=== PATIENT | male | born 1990 | race Caucasian/White ===

== ENCOUNTER 2018-02-04 19:59 | Emergency (ER) | payer SELFPAY ==
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
[2018-02-04] MEDS ORDERED: Acetaminophen/HYDROcodone 325-7.5 MG Tab PO STA (20:24)
--- NOTE | 2018-02-06 14:22 | CR ---
EXAM DATE: 02/04/18 PATIENT'S AGE: 27 Patient: NOEMI ORANTES Facility: [place], [place] Site . Site : 1990 Study: XRay Shoulder Right [id number]/16/2018 8:52:47 PM Ordering Physician: David Nuñez Final Report: HISTORY: Right shoulder pain, fall. TECHNIQUE: Two views of the right shoulder. COMPARISON: No prior. FINDINGS: There is AC joint malalignment which may reflect sequelae of AC joint separation. No acute fracture. No glenohumeral joint dislocation. No abnormality within the included portion of the right lung. IMPRESSION: 1. AC joint malalignment may indicate AC joint separation. 2. No glenohumeral joint dislocation. 3. No acute fracture. Dictated by Quintin Delgado MD @ 02/04/2018 9:29:02 PM Dictated by: Quintin Delgado MD @ 02/04/2018 21:29:06 (Electronic Signature) Report Signed by Proxy. [facility] CENTERMeghna
--- NOTE | 2018-02-06 14:24 | CR ---
EXAM DATE: 02/04/18 PATIENT'S AGE: 27 Patient: NOEMI ORANTES Facility: [place], [place] Site . Site : 1990 Study: XRay Chest [id number]/16/2018 8:53:05 PM Ordering Physician: David Nuñez Final Report: HISTORY: Shoulder pain, fall. TECHNIQUE: One view chest. COMPARISON: No prior. FINDINGS: Cardiac size and pulmonary vasculature are within normal limits. There is no lung infiltrate or pulmonary edema. No pneumothorax or pleural effusion. Please see right shoulder radiograph report for further details regarding AC joint malalignment. Osseous structures otherwise intact. IMPRESSION: No acute cardiopulmonary disease. Dictated by Quintin Delgado MD @ 02/04/2018 9:30:03 PM Dictated by: Quintin Delgado MD @ 02/04/2018 21:30:09 (Electronic Signature) Report Signed by Proxy. KRISTINA
== END 2018-02-04 21:20 | disposition home or self-care (01) ==
LOC: MW.ED 19:59
DX: S43.004A Unspecified dislocation of right shoulder joint, initial encounter (principal); V86.59XA Driver of other special all-terrain or other off-road motor vehicle injured in nontraffic accident, initial encounter
CPT/HCPCS: 71045; 73030; 99283; A9270